=== PATIENT | female | born 1940 | race Hispanic/Latino ===

== ENCOUNTER 2018-12-31 07:40 | Observation (INO) | payer OTHER, MEDICARE ==
[~2018-12-31] VITALS: Ht 167.6 cm; Wt 74.4 kg
[2018-12-31 08:25] LABS: BASOPHILS % (AUTO) 0.3 % (0.0-5.0); EOSINOPHILS % (AUTO) 0.1 % (0.0-8.0); LYMPHOCYTES % (AUTO) 6.4 % (21.0-51.0); MEAN CORPUSCULAR HEMOGLOBIN 28.6 pg (27.0-33.0); MEAN CORPUSCULAR HGB CONC 33.6 g/dL (32.0-36.0); MEAN CORPUSCULAR VOLUME 85.3 fL (79-99); MONOCYTES % (AUTO) 2.4 % (3.0-13.0); NEUTROPHILS % (AUTO) 90.8 % (40.0-77.0); PLATELET COUNT (AUTO) 115 K/uL (130-400); RED BLOOD CELL COUNT(AUTO) 4.46 MIL/uL (4.00-5.50); RED CELL DISTRIBUTION WIDTH 13.7 % (11.0-15.5); WHITE BLOOD COUNT (AUTO) 11.1 K/uL (4.8-10.8)
[2018-12-31 08:31] LABS: APPEARANCE,URINE CLEAR (CLEAR); BILIRUBIN,URINE NEGATIVE (NEGATIVE); COLOR,URINE YELLOW (YELLOW); GLUCOSE, URINE (UA) 100 mg/dL (NEGATIVE); KETONES,URINE NEGATIVE (NEGATIVE); LEUKOCYTE ESTERASE ,URINE SMALL (NEGATIVE); NITRATE,URINE NEGATIVE (NEGATIVE); OCCULT BLOOD,URINE MODERATE (NEGATIVE); PROTEIN,URINE NEGATIVE (NEGATIVE)
[2018-12-31 08:48] LABS: RBC,URINE 0-1 /HPF (0-1)
[2018-12-31 08:49] LABS: BACTERIA,URINE Rare /HPF (None Seen); MUCUS,URINE Rare LPF (None Seen)
[2018-12-31 08:51] LABS: ALBUMIN 2.5 g/dL (3.5-5.0); BILIRUBIN,TOTAL 0.6 mg/dL (0.2-1.0); CREATININE 1.1 mg/dL (0.5-1.5); POTASSIUM 3.4 mmol/L (3.5-5.1); TOTAL PROTEIN, SERUM 6.3 g/dL (6.0-8.3)
[2018-12-31] MEDS ORDERED: DEXTROSE 50%-WATER 50 ML DISP.SYRIN IV ONE ×2 (09:43→12:28)
[2018-12-31] MEDS ORDERED: ACETAMINOPHEN 325 MG TAB ONE (09:53)
[2018-12-31] MEDS ORDERED: CEFTRIAXONE SODIUM 1 GM ONE (09:57)
[2018-12-31] MEDS ORDERED: ACETAMINOPHEN 650 MG SUPPOSITORY RC ONE (10:06)
[2018-12-31] MEDS ORDERED: LABETALOL 20 MG/4 ML DISP.SYRIN IV PRN (12:15)
[2018-12-31] MEDS ORDERED: DEXTROSE 50%-WATER 50 ML DISP.SYRIN IV PRN (12:15)
[2018-12-31] MEDS ORDERED: ONDANSETRON HCL 4 MG/2 ML VIAL IVP PRN (12:15)
[2018-12-31] MEDS: DEXTROSE 10%-WATER 1,000 ML IV SCH (12:15)
[2018-12-31] MEDS ORDERED: GLUCAGON 1MG KIT 1 MG ML IM PRN (12:15)
[2018-12-31] MEDS ORDERED: DEXTROSE 10%-WATER 1,000 ML IV ONE (12:32)
--- NOTE | 2018-12-31 13:12 | NUR ---
ARRIVAL TO FLOOR ROOM 225. PT IS [id number] DENIES CP DENIES SOB DENIES NV NO COMPLAINTS. ARRIVED WITH ORDERS AND DEXTROSE IV INFUSING. SITTING UPRIGHT IN BED EATING LUNCH. NO VISIBLE SIGNS OF DISTRESS NOTED. PENDING TO BRING IN HOME MED LIST.
[2018-12-31 13:16] VITALS: BP 97/50
[2018-12-31] MEDS ORDERED: LISI10TA7 PO (13:19)
[2018-12-31] MEDS ORDERED: TRAM50TA4 PO (13:19)
[2018-12-31] MEDS ORDERED: ASPI-555 PO (13:19)
[2018-12-31] MEDS ORDERED: LOVA20TA3 PO (13:19)
[2018-12-31] MEDS ORDERED: LATA7.5D OD (13:19)
[2018-12-31] MEDS ORDERED: GLIP10TA9 PO (13:19)
--- NOTE | 2018-12-31 13:19 | NUR ---
HOME MEDS REVIEWED WITH PATIENT USING EXT MED HISTORY IN [facility].
[2018-12-31] MEDS ORDERED: CEPH500T PO (13:45)
[2018-12-31] MEDS ORDERED: DOXY100T2 PO (13:45)
[2018-12-31] MEDS ORDERED: LEVO500T89 PO (13:45)
[2018-12-31] MEDS ORDERED: TRAMADOL HCL 50 MG TABLET PO PRN (15:30)
[2018-12-31 16:13] VITALS: BP 104/51
[2018-12-31] MEDS: INSULIN R PO SS1 SQ SCH ×2 (16:23→19:59)
--- NOTE | 2018-12-31 16:29 | NUR ---
STATUS RESTING COMFORTABLY. NO COMPLAINTS. CALL LIGHT WITHIN REACH.
[2018-12-31] MEDS ORDERED: GLIPIZIDE 5 MG TABLET PO SCH (17:00)
--- NOTE | 2018-12-31 18:01 | NUR ---
UP TO SHOWER WITH NURSE AIDE ASSIST. TOLERATED WELL, BACK TO BED. FAMILY IS AT BEDSIDE.
[2018-12-31 19:20] VITALS: BP 101/46
[2018-12-31] MEDS: LATANOPROST 2.5 ML DROPS OD SCH (19:54)
[2018-12-31] MEDS: ATORVASTATIN CALCIUM 10 MG TABLET PO SCH (19:54)
[2018-12-31] MEDS: ACETAMINOPHEN 325 MG TAB PO PRN (23:58)
[2019-01-01] VITALS (7 sets, daily range): BP systolic 98–120; BP diastolic 42–65
[2019-01-01] MEDS: INSULIN R PO SS1 SQ SCH ×4 (06:30→21:00)
--- NOTE | 2019-01-01 08:45 | NUR ---
AM ASSESSMENT PT LAYING IN BED, HOB ELEVATED 30 DEGREES, RESTING. FAMILY @ BEDSIDE. SPA SPEAKING ONLY. A/O X 3. NO SOB. NO DISTRESS NOTED. DENIES CHEST PAIN OR DISCOMFORT. C/O HEADACHE, PO PAIN MEDICATION GIVEN. TELE: SR 80s. DENIES N/V AND/OR DIARRHEA. BR W/BRP. UP W/ASSISTANCE. INSTRUCTED TO CALL FOR ASSISTANCE. CALL BIRDIE W/IN REACH.
[2019-01-01] MEDS: CEFTRIAXONE SODIUM 1 GM IVP SCH (09:06)
[2019-01-01] MEDS: ASPIRIN 81MG TAB.CHEW PO SCH (09:06)
[2019-01-01] MEDS: LISINOPRIL 10 MG TABLET PO SCH (09:07)
[2019-01-01] MEDS: ACETAMINOPHEN 325 MG TAB PO PRN ×2 (09:19→17:08)
[2019-01-01] MEDS: DEXTROSE 10%-WATER 1,000 ML IV SCH (11:29)
--- NOTE | 2019-01-01 18:50 | NUR ---
Received report pt is for possible discharge to [facility] tomorrow.
[2019-01-01] MEDS: ATORVASTATIN CALCIUM 10 MG TABLET PO SCH (21:24)
[2019-01-01] MEDS: LATANOPROST 2.5 ML DROPS OD SCH (21:24)
[2019-01-02 03:39] VITALS: BP 110/58
[2019-01-02] MEDS: INSULIN R PO SS1 SQ SCH ×2 (05:24→11:22)
[2019-01-02 07:52] VITALS: BP 116/68
--- NOTE | 2019-01-02 08:30 | NUR ---
DYSPHAGIA EVAL COMPLETE. -S/S OF ASPIRATION. RECOMMEND REGULAR, THIN LIQUID DIET; PILLS WHOLE WITH LIQUIDS. PATIENT INFORMATION: Pt IS A 78 Y.O. FEMALE REFERRED FOR A BEDSIDE DYSPHAGIA EVALUATION SECONDARY TO C/O DIFFICULTY SWALLOWING FOODS AND LIQUIDS. Pt AAOX3 AND SERVED THE PRIMARY INFORMANT FOR MEDICAL AND SOCIAL HISTORY. Pt REPORTS THAT SHE IS NOT ABLE TO SWALLOW OR EAT BECAUSE SHE HAS NOT HAD A BM IN 6 DAYS. Pt CURRENTLY ADMITTED SECONDARY TO PERSISTENT HYPOGLYCEMIA. Pt CURRENTLY WEAK AND HAS PLAN TO GO TO SNF FOR PHYSICAL THERAPY. EVALUATION: SWALLOW FUNCTION AND EFFICIENCY WITHIN FUNCTIONAL LIMITS. ORAL MOTOR STRENGTH, COORDINATION, AND ROM WITHIN FUNCTIONAL LIMITS. LARYNGEAL ELEVATION/EXCURSION STRONG WITH TIMELY PHARYNGEAL RESPONSE. NO OVERT SIGNS OR SYMPTOMS OF ASPIRATION PRESENT AT BEDSIDE. VOCAL QUALITY CLEAR WITH NO THROAT CLEAR OR COUGH RESPONSE PRESENT. RECOMMENDATIONS: 1. REGULAR TEXTURE, THIN LIQUID DIET; PILLS WHOLE WITH LIQUIDS. 2. COMPENSATORY STRATEGIES (PROPHYLAXIS): *SEATED AT 90 DEGREE ANGLE 3. DIETARY CONSULT SECONDARY TO REPORTS OF LOW P.O. G-CODES SWALLOWING: [id number] Addendum: 01/02/19 at 1356 by THAI ADORNO [facility] Amended: Links added.
[2019-01-02] MEDS: ASPIRIN 81MG TAB.CHEW PO SCH (08:45)
[2019-01-02] MEDS: LISINOPRIL 10 MG TABLET PO SCH (08:45)
[2019-01-02] MEDS: CEFTRIAXONE SODIUM 1 GM IVP SCH ×2 (08:45→09:00)
--- NOTE | 2019-01-02 09:46 | NUR ---
DC PLAN VISITED WITH PATIENT AND SON. PATIENT LIVES ALONE AT HOME. NO SERVICES OR DME'S. MICHELLE SIGNED FOR [facility]. INFO SENT AND PATIENT ACCEPTED. PATIENT WILL GO VIA FACILITY [facility] DONE AND SENT. Addendum: 01/03/19 at 0948 by ANGEL KUMARI RN CM Amended: Links added.
[2019-01-02] MEDS ORDERED: LACTULOSE 20 GM/30 ML UDCUP PO PRN (10:00)
--- NOTE | 2019-01-02 10:45 | NUR ---
DISCHARGE MED REC FAXED.
--- NOTE | 2019-01-02 10:49 | NUR ---
DISCHARGE REPORT GIVEN TO JUAN A IBARRA LVN @ [facility].
[2019-01-02] MEDS: ACETAMINOPHEN 325 MG TAB PO PRN (11:32)
[2019-01-02 11:40] VITALS: BP 109/61
--- NOTE | 2019-01-02 13:42 | NUR ---
DISCHARGE PT HAD GOOD BM. [facility] CALLED TO REQUEST TRANSPORT.
--- NOTE | 2019-01-02 14:05 | NUR ---
DISCHARGE PT TAKEN TO PRIVATE VEHICLE VIA WC BY [facility] DUENAS PCP, ACCOMPANIED BY SPOUSE. NO DISTRESS NOTED. Addendum: 01/02/19 at 1411 by JOHNSON POLLARD RN RN ERROR ENTRY, WRONG PT.
--- NOTE | 2019-01-02 14:45 | NUR ---
DISCHARGE [facility] HERE TO TRANSFER PT TO FACILITY. PT TAKEN TO [facility] BY [facility] STAFF, ACCOMPANIED BY SON. NO DISTRESS NOTED.
== END 2019-01-02 14:45 ==
LOC: EDH 07:40 → EDHIP 10:56 → 2DH 13:09
PROVIDERS: ADMIT Internal Medicine Pulmonary Disease; ATTEND Internal Medicine Pulmonary Disease
DX: E11.649 Type 2 diabetes mellitus with hypoglycemia without coma (principal); E78.5 Hyperlipidemia, unspecified; I10 Essential (primary) hypertension; Z83.3 Family history of diabetes mellitus; Z82.49 Family history of ischemic heart disease and other diseases of the circulatory system; Z79.899 Other long term (current) drug therapy; Z79.82 Long term (current) use of aspirin; Z86.73 Personal history of transient ischemic attack (TIA), and cerebral infarction without residual deficits
CPT/HCPCS: 36415; 80053; 81001; 82948 ×18; 85025; 87088; 92610; 96374; 97039 ×2; 97116; 97161; 99291; A4218 ×2; A4600; G0378 ×51; G8978; G8979; G8980; G8981; G8982; G8983; J0696 ×3; J3490; J7070 ×2

== ENCOUNTER → 2020-02-27 | Outpatient (CLI) | payer OTHER ==
[~2020-02-27] MED LIST: ASPI-556 PO; DOXY100T2 PO; LATA7.5D OD; LISI10TA7 PO; LOVA20TA3 PO; TRAM50TA4 PO
== END | disposition home or self-care (01) ==
LOC: SHCH 11:26
PROVIDERS: ATTEND Internal Medicine Cardiovascular Disease
DX: R00.1 Bradycardia, unspecified (principal)
CPT/HCPCS: 93306

== ENCOUNTER → 2023-09-20 | Outpatient (CLI) | payer OTHER ==
[~2023-09-20] MED LIST changes: +LISI10TA24 PO; -LISI10TA7 PO
== END | disposition home or self-care (01) ==
LOC: SHCH 09:10
PROVIDERS: ATTEND Internal Medicine Cardiovascular Disease
DX: I08.3 Combined rheumatic disorders of mitral, aortic and tricuspid valves (principal); R01.1 Cardiac murmur, unspecified; I11.9 Hypertensive heart disease without heart failure; E78.5 Hyperlipidemia, unspecified; E11.9 Type 2 diabetes mellitus without complications; I70.0 Atherosclerosis of aorta
CPT/HCPCS: 93306